=== PATIENT | male | born 1995 | race Two or more races ===

== ENCOUNTER 2021-05-13 19:48 | Emergency (ER) | payer SELFPAY ==
[~2021-05-13] VITALS: Ht 162.6 cm; Wt 81.8 kg
--- NOTE | 2021-05-13 20:00 | NUR ---
pt refused blood draw, officers obtaining a warrant for blood
[2021-05-13 21:34] VITALS: BP 123/94
== END 2021-05-13 22:18 ==
LOC: ER 19:49
DX: Z04.1 Encounter for examination and observation following transport accident (principal); F10.129 Alcohol abuse with intoxication, unspecified; V89.2XXA Person injured in unspecified motor-vehicle accident, traffic, initial encounter; Y93.89 Activity, other specified; Y92.89 Other specified places as the place of occurrence of the external cause; Y99.8 Other external cause status; Y90.9 Presence of alcohol in blood, level not specified
CPT/HCPCS: 99283